=== PATIENT | male | born 1990 | race American Indian/Alaskan Native ===

== ENCOUNTER 2018-12-28 09:29 | Emergency (ER) | payer SELFPAY ==
[2018-12-28 09:46] VITALS: BP 181/107
--- NOTE | 2018-12-28 10:21 | XRay Report ---
LEFT FOOT, 3 views: History: Pain and swelling. The bony architecture is intact. Bony alignment is normal. There is mild diffuse soft tissue swelling or edema. The joint spaces appear preserved. IMPRESSION: Diffuse nonspecific swelling or soft tissue edema. No osseous abnormality is detected.
--- NOTE | 2018-12-28 10:52 | Emergency Department Report ---
ED Lower Extremity HPI - General Chief Complaint: Extremity Injury, Lower Stated Complaint: (L) SWOLLEN FOOT Time Seen by Provider: 12/28/18 10:49 Source: patient, family Mode of arrival: Wheelchair Limitations: No Limitations - History of Present Illness Initial Comments: Patient is a 28-year-old obese male who comes to the ER today complaining of acute onset of left foot pain and swelling. He states that it occurred yesterday. He thought that it would go away but it did not say comes to the ER. There is no history of trauma. He is on no medications and has no significant medical history. -: Sudden, days(s) (2) Injury: Foot: Left Place: home Severity: severe Worsens With: movement - Related Data Previous Rx's Medication Instructions Recorded Last Taken Type Colchicine 0.6 mg PO DAILY #11 capsule 12/28/18 Unknown Rx Ibuprofen [Motrin] 800 mg PO Q8HR PRN #20 tablet 12/28/18 Unknown Rx predniSONE [Deltasone] 20 mg PO DAILY #5 tablet 12/28/18 Unknown Rx Allergies Allergy/AdvReac Type Severity Reaction Status Date / Time No Known Allergies Allergy Verified 12/28/18 09:46 ED Review of Systems ROS: Stated complaint: (L) SWOLLEN FOOT Other details as noted in HPI Comment: All other systems reviewed and negative ED Past Medical Hx - Past Medical History Previous Medical History?: No - Surgical History Past Surgical History?: No - Family History Family history: no significant - Social History Smoking Status: Never Smoker Substance Use Type: Alcohol - Medications Home Medications: Home Medications Medication Instructions Recorded Confirmed Last Taken Type Colchicine 0.6 mg PO DAILY #11 capsule 12/28/18 Unknown Rx Ibuprofen [Motrin] 800 mg PO Q8HR PRN #20 tablet 12/28/18 Unknown Rx predniSONE [Deltasone] 20 mg PO DAILY #5 tablet 12/28/18 Unknown Rx ED Physical Exam - General Limitations: No Limitations General appearance: alert - Head Head exam: Present: atraumatic - Eye Eye exam: Present: normal appearance, PERRL - ENT ENT exam: Present: mucous membranes moist - Neck Neck exam: Present: normal inspection - Respiratory Respiratory exam: Present: normal lung sounds bilaterally - Cardiovascular Cardiovascular Exam: Present: regular rate - GI/Abdominal GI/Abdominal exam: Present: soft - Rectal Rectal exam: Present: deferred - Expanded Lower Extremity Exam Left Foot/Toe exam: Present: full ROM (limted with pain), tenderness, swelling, erythema. Absent: abrasion, laceration, ecchymosis, deformity, crepidus, dislocation, amputation, puncture wound, foreign body, calcaneal tenderness, tenderness at base of 5th metatarsal, nail avulsion, subungual hematoma - Back Exam Back exam: Present: normal inspection ED Course Vital Signs 12/28/18 12/28/18 12/28/18 09:45 11:07 11:08 Temperature 98 F Pulse Rate 74 Respiratory 18 20 20 Rate Blood Pressure 181/107 [Right] O2 Sat by Pulse 99 Oximetry ED Lower Extremity MDM - Radiology Data Radiology results: report reviewed, image reviewed - Medical Decision Making XRAY NEG PAIN CONSISTENT WITH GOUT OVER GREAT TOE RED/SWOLLEN NO HISTORY OF EATS A LOT OF RED MEAT BP ELEVATED PT INSTRUCTED TO MONITOR FOLLOW UP WITH PCP TO REEVALUATE MEDICATED FOR PAIN ORTHO SHOE AND CRUTCHES DC HOME WITH FOLLOW UP Vital Signs 12/28/18 09:45 Temperature 98 F Pulse Rate 74 Respiratory 18 Rate Blood Pressure 181/107 [Right] O2 Sat by Pulse 99 Oximetry - Differential Diagnosis RO FRACTURE Critical care attestation.: If time is entered above; I have spent that time in minutes in the direct care of this critically ill patient, excluding procedure time. ED Disposition Clinical Impression: Gout, Elevated blood pressure reading, Morbid obesity, Pain of left great toe Disposition: DC-01 TO HOME OR SELFCARE Is pt being admited?: No Does the pt Need Aspirin: No Condition: Stable Instructions: Acute Gouty Arthritis (ED) Additional Instructions: med as ordered today diet as tolerated activity as tolerated hydrate well with water MONITOR BLOOD PRESSURE LOW FAT LOW SALT DIET DECREASE RED MEAT AND BEER EAT MORE FISH AND CHICKEN FOLLOW UP PCP REFERRAL BELOW Prescriptions: Colchicine 0.6 mg PO DAILY #11 capsule predniSONE [Deltasone] 20 mg PO DAILY #5 tablet Ibuprofen [Motrin] 800 mg PO Q8HR PRN #20 tablet PRN Reason: Pain , Severe (7-10) Referrals: [facility] [Outside] - 3-5 Days Time of Disposition: 11:00
[2018-12-28] MEDS ORDERED: TORADOL IM ONE (10:57)
[2018-12-28] MEDS ORDERED: NORCO 7.5/325 PO ONE (10:57)
[2018-12-28] MEDS ORDERED: DELTASONE PO ONE (11:02)
== END 2018-12-28 11:22 | disposition home or self-care (01) ==
LOC: ED 09:29
DX: M10.9 Gout, unspecified (principal); M79.675 Pain in left toe(s); R03.0 Elevated blood-pressure reading, without diagnosis of hypertension; E66.01 Morbid (severe) obesity due to excess calories; Z68.43 Body mass index [BMI] 50.0-59.9, adult
CPT/HCPCS: 73630; 96372; 99284; J1885; J7512

== ENCOUNTER 2022-04-11 23:20 | Emergency (ER) | payer SELFPAY ==
[2022-04-11 23:39] VITALS: BP 156/88
--- NOTE | 2022-04-12 00:20 | XRay Report ---
Soft tissue neck 2 views INDICATION: Obstruction FINDINGS: No radiopaque foreign body seen within the soft tissues. Degenerative changes seen througho ut spine. Visualized airway appears patent. If there is concern for obstruction follow-up with upper GI/exam. Signer Name: Gautam Rey MD Signed: 04/12/2022 12:16 AM Workstation Name: [id number]
== END 2022-04-12 05:49 | disposition left against medical advice (07) ==
LOC: ED 23:20
DX: K22.9 Disease of esophagus, unspecified (principal); Z53.21 Procedure and treatment not carried out due to patient leaving prior to being seen by health care provider
CPT/HCPCS: 70360

== ENCOUNTER 2022-04-16 10:50 | Emergency (ER) | payer SELFPAY ==
[2022-04-16] MEDS ORDERED: KETOROLAC 30 MG/1 ML INJ IM ONE (14:26)
[2022-04-16] MEDS ORDERED: dexAMETHasone 4 MG/ML VIAL IM ONE (14:26)
[2022-04-16] MEDS ORDERED: oxyCODONE /ACETAMINOPHEN 5-325MG TAB PO ONE (14:26)
--- NOTE | 2022-04-16 14:26 | Emergency Department Report ---
ED Lower Extremity HPI - General Chief Complaint: Extremity Injury, Lower Stated Complaint: LT FOOT PAIN Time Seen by Provider: 04/16/22 13:39 Source: patient Mode of arrival: Ambulatory Limitations: Physical Limitation - History of Present Illness Initial Comments: 31-year-old male with history of gout presents with left foot pain. Patient reports similar to his gout pain, began 2 days ago. Currently not taking any medications, is unsure of his triggers however symptoms began after he ate some seafood. He denies fall or injury no fever no nausea vomiting no numbness tingling of the extremity. Pain is worse with ambulating and improves with rest. He denies chest pain, no shortness of breath, no weakness or paralysis of his extremities. MD Complaint: other -: Gradual, days(s) Injury: Foot: Left, Toes: Left Type of Injury: unknown Severity scale (0 -10): 10 Improves With: nothing Worsens With: weight bearing, palpation Associated Symptoms: swelling, able to partially bear weight. denies: snap/pop sensation, numbness, tingling, unable to bear weight - Related Data Previous Rx's Medication Instructions Recorded Last Taken Type Colchicine 0.6 mg PO DAILY #11 capsule 12/28/18 Unknown Rx Ibuprofen [Motrin] 800 mg PO Q8HR PRN #20 tablet 12/28/18 Unknown Rx Colchicine [Colcrys] 0.6 mg PO BID PRN #30 tab 04/16/22 Unknown Rx methylPREDNISolone [Medrol 4MG 4 mg PO DAILY #1 04/16/22 Unknown Rx DOSEPAK (21 tabs)] predniSONE [Deltasone] 20 mg PO DAILY #5 tablet 04/16/22 Unknown Rx traMADoL [Ultram 50 MG tab] 50 mg PO Q4HR PRN #12 tablet 04/16/22 Unknown Rx Allergies Allergy/AdvReac Type Severity Reaction Status Date / Time No Known Allergies Allergy Verified 04/16/22 13:19 ED Review of Systems ROS: Stated complaint: LT FOOT PAIN Other details as noted in HPI Constitutional: denies: chills, fever ENT: denies: ear pain Cardiovascular: denies: chest pain, palpitations Endocrine: denies: intolerance to cold Gastrointestinal: denies: abdominal pain, nausea, vomiting Musculoskeletal: joint swelling, arthralgia. denies: back pain Skin: denies: rash Neurological: denies: headache, weakness Hematological/Lymphatic: denies: easy bleeding, easy bruising, swollen glands ED Past Medical Hx - Past Medical History Additional medical history: Obesity/ GOUT - Social History Smoking Status: Never Smoker Substance Use Type: None - Medications Home Medications: Home Medications Medication Instructions Recorded Confirmed Last Taken Type Colchicine 0.6 mg PO DAILY #11 capsule 12/28/18 Unknown Rx Ibuprofen [Motrin] 800 mg PO Q8HR PRN #20 tablet 12/28/18 Unknown Rx Colchicine [Colcrys] 0.6 mg PO BID PRN #30 tab 04/16/22 Unknown Rx methylPREDNISolone [Medrol 4MG 4 mg PO DAILY #1 04/16/22 Unknown Rx DOSEPAK (21 tabs)] predniSONE [Deltasone] 20 mg PO DAILY #5 tablet 04/16/22 Unknown Rx traMADoL [Ultram 50 MG tab] 50 mg PO Q4HR PRN #12 tablet 04/16/22 Unknown Rx ED Physical Exam - General Limitations: Physical Limitation General appearance: alert, in no apparent distress, obese - Head Head exam: Present: atraumatic - Eye Eye exam: Present: normal appearance, PERRL Pupils: Present: normal accommodation - ENT ENT exam: Present: normal exam, normal orophraynx - Neck Neck exam: Present: normal inspection, full ROM. Absent: tenderness - Respiratory Respiratory exam: Present: normal lung sounds bilaterally. Absent: respiratory distress, wheezes - Cardiovascular Cardiovascular Exam: Present: regular rate, normal rhythm - GI/Abdominal GI/Abdominal exam: Present: soft, normal bowel sounds. Absent: distended, tenderness - Extremities Exam Extremities exam: Present: tenderness, joint swelling, other (Tenderness over the left great toe at the MCP area. There is some mild swelling. No erythema.). Absent: full ROM - Back Exam Back exam: Present: normal inspection, full ROM - Neurological Exam Neurological exam: Present: alert, oriented X3 - Psychiatric Psychiatric exam: Present: normal affect - Skin Skin exam: Present: warm, dry, intact, normal color ED Course Vital Signs 04/16/22 13:21 Temperature 98.3 F Pulse Rate 67 Respiratory 18 Rate Blood Pressure 178/117 [Right] O2 Sat by Pulse 99 Oximetry ED Lower Extremity MDM - Medical Decision Making 31-year-old male with history of gout presents with left foot pain. Patient reports similar to his gout pain, began 2 days ago. Currently not taking any medications, is unsure of his triggers however symptoms began after he ate some seafood. He denies fall or injury no fever no nausea vomiting no numbness tingling of the extremity. Pain is worse with ambulating and improves with rest. He denies chest pain, no shortness of breath, no weakness or paralysis of his extremities. Symptoms treated in the emergency department with pain management and steroids, will discharge home with NSAIDs, 3 days of opioid, steroids and outpatient referral Patient remained stable nontoxic-appearing, afebrile, ambulating steadily without assistance. Gone over ED findings with patient as well as plan for follow-up. Also discussed return precautions with patient, all questions and concerns addressed. Patient is stable to be discharged follow-up outpatient. Audio voice dictation device used, hence the chart might contain some dictation errors, mispronunciations, wrong spelling and wrong verbiage. Critical care attestation.: If time is entered above; I have spent that time in minutes in the direct care of this critically ill patient, excluding procedure time. ED Disposition Clinical Impression: Gout, arthritis, Joint pain Disposition: 01 HOME / SELF CARE / HOMELESS Is pt being admited?: No Does the pt Need Aspirin: No Condition: Stable Instructions: Low-Purine Eating Plan Prescriptions: Colchicine [Colcrys] 0.6 mg PO BID PRN #30 tab PRN Reason: Pain , Severe (7-10) predniSONE [Deltasone] 20 mg PO DAILY #5 tablet methylPREDNISolone [Medrol 4MG DOSEPAK (21 tabs)] 4 mg PO DAILY #1 traMADoL [Ultram 50 MG tab] 50 mg PO Q4HR PRN #12 tablet PRN Reason: Pain Referrals: KIM WALTER MD [Staff Physician] - 3-5 Days DEJON PERSON MD [Staff Physician] - 3-5 Days Forms: Work/School Release Form(ED)
[2022-04-16 16:02] VITALS: BP 164/90
== END 2022-04-16 16:23 | disposition home or self-care (01) ==
LOC: ED 10:50
DX: M19.90 Unspecified osteoarthritis, unspecified site (principal); M79.672 Pain in left foot; Z79.899 Other long term (current) drug therapy
CPT/HCPCS: 96372; 99282; J1100; J1885